=== PATIENT | female | born 1970 | race African-American/Black ===

== ENCOUNTER 2018-07-29 08:44 | Emergency (ER) | payer BC ==
[2018-07-29 09:03] VITALS: BP 143/92; PULSE 73; TEMP 98.6; BMI 36.6
[2018-07-29] MEDS ORDERED: diazePAM 5 MG TABLET PO ONE (09:15)
[2018-07-29] MEDS ORDERED: KETOROLAC TROMETHAMINE 60 MG/2 ML VIAL IM ONE (09:15)
[2018-07-29] MEDS ORDERED: KETOROLAC TROMETHAMINE 60 MG/2 ML VIAL ONE (09:22)
[2018-07-29] MEDS ORDERED: diazePAM 5 MG TABLET ONE (09:23)
--- NOTE | 2018-07-29 09:34 | PDOC ---
History of Present Illness - General Chief Complaint: Back Pain Stated Complaint: PAIN, LT SIDE Time Seen by Provider: 07/29/18 09:03 History Source: Patient Exam Limitations: No Limitations - History of Present Illness Initial Comments: CHIEF COMPLAINT: 48 y/o female with chronic low back issues and sciatica flares c/o right sided sciatica flare. 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 4 days ago she began with symptoms. Yesterday the pain down her right leg was so bad she was given a toradol injection at work. She does have meloxicam and flexeril at home but did not take any yet. She denies fall, midline back pain, new back trauma, numbness in LEs, saddle anesthesia. Vital signs on arrival are within normal limits. REVIEW OF SYSTEMS: GENERAL/CONSTITUTIONAL: Nofever/chills. No weakness. No weight change. GENITOURINARY: No dysuria, frequency, or change in urination. MUSCULOSKELETAL: +right sided low back pain traveling down right leg. SKIN: No rash or easy bruising. NEUROLOGIC: No headache, vertigo, loss of consciousness, or loss of sensation. PHYSICAL EXAM: GENERAL: The patient is awake, alert, and fully oriented, in no acute distress. She appears uncomfortable. ABDOMEN: Soft, non-distended, non-tender even to deep palpation, no hepatomegaly or splenomegaly, no masses BACK: No midline lumbar spine TTP or step offs. TTP of right lower lumbar paravertebral muscles as well as right gluteal muscles. EXTREMITIES: Normal range of motion, no edema. NEUROLOGICAL: Normal speech, normal gait. CN II-XII grossly intact. No saddle anesthesia. SKIN: Warm, dry, normal turgor, no rashes or lesions noted. Past History - Past Medical History Allergies/Adverse Reactions: Allergies Allergy/AdvReac Type Severity Reaction Status Date / Time aspirin AdvReac Verified 07/29/18 08:55 ibuprofen AdvReac Verified 07/29/18 08:56 Home Medications: Ambulatory Orders Meloxicam 15 mg PO 07/29/18 Cardiac Disorders: Yes (HEART MURMUR) COPD: No Hypercholesterolemia: Yes - Suicide/Smoking/Psychosocial Hx Smoking Status: No Smoking History: Never smoked Number of Cigarettes Smoked Daily: 0 *Physical Exam - Vital Signs Last Vital Signs Temp Pulse Resp BP Pulse Ox 98.6 F 73 18 143/92 98 07/29/18 08:51 07/29/18 08:51 07/29/18 08:51 07/29/18 08:51 07/29/18 08:51 Medical Decision Making - Medical Decision Making A/P: 48 y/o female with sciatica flare. Plan is as follows: 1. IM toradol 2. PO valium Demonstrated stretching exercises and suggested she perform them 4-5 times per day. Instructed her to use heating pad and take her prescribed medications at home. Instructed her to f/u with her doctor tomorrow. The patient verbalizes understanding of all instructions, has no further questions and is awaiting discharge. *DC/Admit/Observation/Transfer Diagnosis at time of Disposition: Back pain with sciatica - Discharge Dispostion Disposition: HOME Condition at time of disposition: Good - Referrals Referrals: Nathalia James [Primary Care Provider] - - Patient Instructions Printed Discharge Instructions: DI for Back Pain With Sciatica Additional Instructions: Discharge Instructions: -Perform stretching exercises 4-5 times per day -Use heating pad to affected area -Continue taking your prescribed medication for sciatica at home -Follow up with your doctor on Monday - Post Discharge Activity Forms/Work/School Notes: Back to Work
== END 2018-07-29 09:40 | disposition home or self-care (01) ==
LOC: JER 08:44 → JERFT 08:44
PROC: 3E0233Z Introduction of Anti-inflammatory into Muscle, Percutaneous Approach (ICD-10-PCS; principal; 2018-07-29)
DX: M54.41 Lumbago with sciatica, right side (principal); E78.00 Pure hypercholesterolemia, unspecified; R01.1 Cardiac murmur, unspecified
CPT/HCPCS: 99281-25